=== PATIENT | female | born 1945 | race Caucasian/White ===

== ENCOUNTER 2016-09-03 23:36 | Emergency (ER) | payer MEDICARE ==
[~2016-09-03] VITALS: Ht 160 cm; Wt 92.7 kg
[2016-09-03 23:40] VITALS: BP 135/93; PULSE 86; RESP 16; O2SAT 96
--- NOTE | 2016-09-03 23:52 | ED.REPORT ---
HPI-Back Pain 40 and Over Date of Service Sep 03, 2016 ED Provider: Joesph Steele DO Patient is a 71 year old female with a history of kidney stones who presents to the ED complaining of left flank pain onset yesterday. The patient reports pain with deep inhalation and that it is exacerbated by movement. She denies rash or abdominal pain. Patient states that she tried taking Hydrocodone earlier with no relief. Nursing Notes Stated Complaint: BACK PAIN Chief Complaint: Back Pain or Injury Nursing Notes Reviewed: Yes Allergies: Coded Allergies: aspirin (Verified Allergy, Mild, RASH, 09/03/16) General Time Seen by MD: 23:52 Chief Complaint Flank pain left Hx Obtained From: Patient Arrived By: Walk-in Sudden in Onset?: Yes Onset Occurred: Yesterday Symptom Duration: Since onset Location: : Flank left Quality: Painful Severity: Current: Moderate Exacerbated by: Breathing, Walking Recent Healthcare: No recent doctor visit, No recent hospitalization Past Medical History Past Medical History kidney stones Ambulatory Status Independent Review of Systems Constitutional: Denies: Chills, Fever Respiratory: Denies: Non-productive cough, Shortness of breath GI: Denies: Abdominal pain Female: Reports: Flank pain Complete sys rev & neg: except as marked. Skin: Denies Rash Physical Exam Initial Vital Signs Vital Signs (First) Date Time Temp Pulse Resp B/P Pulse Ox O2 Delivery O2 Flow Rate FiO2 09/03/16 23:40 36.1 86 16 135/93 96 Room Air Initial VS: Reviewed General/Constitutional: Awake, Alert Moderate distress due to pain Respiratory / Chest: Atraumatic, Breath sounds NL, Breath sounds = bilat, No respiratory distress Cardiovascular: Heart rate NL, Regular rhythm, Heart sounds NL Abdomen: Atraumatic, Soft, Non-tender Back: Atraumatic left CVA tenderness Neurologic: Oriented X3, Speech NL, No motor deficits, No sensory deficits Neck: Atraumatic, Supple, Full range of motion Lower Extremity / Pelvis / MS: Atraumatic, Full range of motion Skin: Atraumatic, Color NL, No rash, Warm, Dry Head / Eyes: Atraumatic, Normocephalic, PERRL, EOMI Upper Extremity / MS: Atraumatic, Full range of motion Psychiatric: Affect NL, Mood NL Interpretation & Diagnostics Lab Results Interpretation Result Diagram: 09/04/16 0050 09/04/16 0050 Test 09/04/16 00:05 09/04/16 00:50 09/04/16 01:54 Urine Color Yellow (YELLOW) Urine Appearance Clear (CLEAR,HAZY) Urine pH 6.0 (5.0-8.0) Urine Specific [place] 1.021 (1.003-1.035) Urine Protein Negativemg/dL (NEG,TRACE) Urine Glucose (UA) Negativemg/dL (NEGATIVE) Urine Ketones Negativemg/dL (NEGATIVE) Urine Occult Blood Negative (NEGATIVE) Urine Nitrite Negative (NEGATIVE) Urine Bilirubin Negative (NEGATIVE) Urine Urobilinogen Normalmg/dL (NORMAL) Urine Leukocyte Esterase Trace (NEGATIVE) Urine RBC 0-2/hpf (0-2) Urine WBC 0-5/hpf (0-5) Urine Epithelial Cells Many/hpf (NONE-MOD) Urine Crystals None seen (NONE SEEN) Urine Bacteria Few/hpf (NONE-FEW) Urine Hyaline Casts None/lpf (NONE) Urine Granular Casts None seen (NONE SEEN) Urine Waxy Casts None seen (NONE SEEN) Urine Red Blood Cell Casts None seen (NONE SEEN) Urine White Blood Cell Casts None seen (NONE SEEN) Urine Mucus None seen (None Seen) Urine Trichomonas None seen (NONE SEEN) Urine Yeast None (NONE SEEN) Urinalysis Comment Urine Culture Reflexed Indicated White Blood Count 12.9th/mm3 (3.8-10.1) Red Blood Count 4.69mil/mm3 (3.90-5.20) Hemoglobin 14.4g/dL (12.0-15.6) Hematocrit 43.5% (35.0-46.0) Mean Corpuscular Volume 92.8fL (81-100) Mean Corpuscular Hemoglobin 30.7pg (27.0-35.0) Mean Corpuscular Hemoglobin Concent 33.1% (32.0-37.0) Red Cell Distribution Width 13.3% (12.3-15.4) Platelet Count 304bil/L (150-400) Neutrophils (%) (Auto) 62.7% (40-74) Lymphocytes (%) (Auto) 22.1% (14-46) Monocytes (%) (Auto) 6.0% (4-12) Eosinophils (%) (Auto) 8.2% (0-5) Basophils (%) (Auto) 0.5% (0-3) D-Dimer 0.52mg/L FEU (<0.50) Sodium Level 143mEq/L (134-144) Potassium Level 4.2mEq/L (3.5-5.2) Chloride Level 103mEq/L (97-108) Carbon Dioxide Level 24mmol/L (18-29) Blood Urea Nitrogen 24mg/dL (8-27) Creatinine 0.81mg/dL (0.57-1.00) Estimat Glomerular Filtration Rate 100mL/min (>59) Glucose Level 124mg/dL (60-99) Calcium Level 9.6mg/dL (8.5-10.1) Total Bilirubin 0.2mg/dL (0.0-1.2) Aspartate Amino Transf (AST/SGOT) 25U/L (0-50) Alanine Aminotransferase (ALT/SGPT) 26U/L (0-32) Alkaline Phosphatase 97U/L (25-165) Total Protein 7.1g/dL (6.4-8.4) Albumin 4.3g/dL (3.4-5.0) Troponin T < 0.010ug/L (0.0-0.011) CT Abd / Pelvis Interpretation IMPRESSION: 1. Negative for obstructive uropathy. Left renal parapelvic cysts. 2. Normal appendix. No free air, bowel obstruction, or mesenteric inflammation. Moderate to large colonic fecal debris, query constipation. No evidence of fecal impaction. at 0036 Interpretation / Wet Read by: Interpret - Radiologist Re-Eval/Medical Decision Med Decision/Clinical Course This is a very pleasant 71-year-old female who presents with rather severe and intermittent left flank pain. She states his evening her left flank started on her when she was twisting. Since then anytime she twists or takes a deep breath or pushes in the left flank region she has severe pain. She has had prior kidney stones. No history of aortic dissection or pulmonary embolism. On examination she appeared in moderate distress due to pain. She is exquisitely tender left CVA left flank. She also had significant pain with deep breathing. She was unable to move from the chair to the bed without significant pain. Structural uropathy was ruled out with a CT KUB. She had an elevated d-dimer rather significant pleuritic pain so pulmonary emboli was a consideration. This certainly could have been the left lower lobe of her lung. Pulmonary emboli was ruled out. Troponin was normal. MD seems highly unlikely. She is having no chest pain and she has full her reproducible left flank pain. She still had some pain and then developed some nausea after receiving some pain medication. I recommended that we admit her to the hospital overnight for observation and symptomatic control. She declines. She states that she is wants have some pain and nausea medicine for home. Evidently she has to catch a long flight to [facility]. Family members and she does not want this to be injured at all. Considering that MD, dissection and pulmonary emboli highly unlikely think is reasonable that she goes home tonight however she needs understand that the cause of her pain is uncertain and may yet be life- threatening. She agrees to return if she has any problems or any worsening symptoms. She cannot drive tonight. Routine opiate warnings were given. Re-Evaluation/Progress #1: Time of Eval: 00:47 Re-Evaluation/Progress Note: Discussed CT results. Patient reports that the pain is exacerbated the most when she takes a deep breath. Re-Evaluation/Progress #2: Time of Eval: 01:42 Re-Evaluation/Progress Note: Discussed D-Dimer results and plan for CT angio. Re-Evaluation/Progress #3: Time of Eval: 02:22 Re-Evaluation/Progress Note: Patient reports that she is now nausea and feels worse. She is retching Re-Evaluation/Progress #4: Time of Eval: 02:32 Re-Evaluation/Progress Note: Recommended admitting and patient stated that she would just like to go home because she has a flight to catch later. Discussed discharge plan and recommended close follow up with her primary care physician or to return to the ED. Patient understands and agrees to the plan. All questions were addressed. Counseled Regarding: Diagnosis, Lab results, Need for follow-up, When/why to return to ED Discharge & Departure Impression: Primary Impression: Flank pain Additional Impressions: Vomiting Vomiting type: unspecified Vomiting Intractability: unspecified Nausea presence: with nausea Qualified Code: R11.2 - Nausea with vomiting, unspecified Leukocytosis Leukocytosis type: unspecified Qualified Code: D72.829 - Elevated white blood cell count, unspecified Disposition: Home Discharge Condition All VS Reviewed: Yes Condition: Stable Patient Instructions: Flank Pain (ED) Additional Instructions: We are uncertain the cause of your pain. Hospital admittance was recommended. You can come back to the emergency department if you change your mind about this. You can take 1 Zofran every 6-8 for nausea. Take 1-2 [place] every 6 hours for pain. Do not drink alcohol or drive while taking the pain medication. Do not combine with Acetaminophen. Do not drive tonight. Take Miralax 2x while taking the [place] to help with constipation. Close follow up with your primary care physician is strongly recommended Return to the emergency department if you develop any new or concerning symptoms. Call Tuesday to set up a follow up appointment. Referrals: [facility] [place] Att[facility] Portions of this note were transcribed by Tami Hutchinson. I, Dr. Steele personally performed the history, physical exam and medical decision-making; I reviewed and confirmed the accuracy of the information in the transcribed note. Signed by: Veronica Bess, 09/04/16 and 0245 Joesph Steele DO Sep 03, 2016 23:52 Yamileth Hutchinson Sep 03, 2016 23:58
[2016-09-04] MEDS ORDERED: HYDROmorphone 0.5 mg/0.5 mL iSecure Syringe IVPUSH PRN (00:05)
[2016-09-04] MEDS ORDERED: 0.9% Sodium Chloride 1,000 ML IV ONE ×2 (00:05→02:25)
[2016-09-04] MEDS ORDERED: Ketorolac 15 mg/mL Inj IVPUSH ONE (00:05)
[2016-09-04] MEDS ORDERED: Sodium Chloride LOK Flush 10 mL Syringe IVFLUSH SCH (00:30)
[2016-09-04 00:31] LABS: COLOR,URINE YELLOW (YELLOW)
[2016-09-04 00:32] LABS: APPEARANCE,URINE CLEAR (CLEAR,HAZY); OCCULT BLOOD,URINE NEGATIVE (NEGATIVE); UROBILINOGEN,URINE NORMAL (NORMAL)
[2016-09-04 00:54] LABS: BASOPHILS % (AUTO) 0.5 % (0-3); EOSINOPHILS % (AUTO) 8.2 % (0-5); Mean Corpuscular Hemoglobin 30.7 pg (27.0-35.0); Mean Corpuscular Volume 92.8 fL (81-100); NEUTROPHILS % (AUTO) 62.7 % (40-74); Platelet Count 304 bil/L (150-400)
[2016-09-04] MEDS: Ondansetron 2 mg/mL 2 mL Inj IVPUSH PRN ×2 (00:55→02:42)
[2016-09-04] MEDS ORDERED: _HYDROcodone/APAP 5-325 mg Tablet PO PRN (01:50)
[2016-09-04 02:27] VITALS: BP 149/84; PULSE 82; RESP 16; O2SAT 96
[2016-09-04] MEDS ORDERED: _Ondansetron ODT 4 mg Tablet PO PRN (02:35)
[2016-09-04 03:31] VITALS: BP 149/84; PULSE 82; RESP 16; O2SAT 96
--- NOTE | 2016-09-04 07:50 | DRSVH ---
PROCEDURE: CT ANGIO CHEST PULMONARY EMBOLISM ([id number]) INDICATIONS: pleuritic posterior thoracic pain, elevated ddimer TECHNIQUE: After the administration of intravenous contrast, 2 mm thick sections acquired from the pulmonary api jenny to the posterior costophrenic angles. 3-dimensional maximum intensity projection (MIP) coronal a nd sagittal reformats were then acquired through the thorax. For radiation dose reduction, the follo wing was used: automated exposure control, adjustment of mA and/or kV according to patient size. COMPARISON: None. FINDINGS: Image quality: Good Pulmonary arteries: Pulmonary arteries are normal in size, and demonstrate no intraluminal filling d efects to suggest central pulmonary embolism. Lungs and pleura: Lungs are clear. 3 cm bleb at the left apex of the lung No pleural effusions or p neumothorax. Central and peripheral airways are patent. Mediastinum: Heart size is normal, without pericardial effusion. No mediastinal or hilar adenopathy . Thoracic aorta is normal in caliber and enhancement. Esophagus is normal in caliber, without hiat al hernia. Bones and chest wall: No suspicious bony lesions. Ribs and thoracic spine appear intact throughout. Thyroid gland is within normal limits. No axillary or supraclavicular adenopathy. Abdomen: Visualized upper abdominal solid organs appear normal in the early arterial phase of enhanc ement. IMPRESSION: No acute disease is seen in the CT of the thorax for PE protocol. Vasculature is normal. No pulmonary embolus is seen. No acute disease is seen in the lungs. Dictated by: Jeff Thakkar M.D. on 09/04/2016 at 7:46 this report corresponds to the findings of the preliminary NSR report. Approved by: Jeff Thakkar M.D. on 09/04/2016 at 7:48
--- NOTE | 2016-09-04 09:16 | DRSVH ---
PROCEDURE: CT KUB ([id number]) INDICATIONS: left flank pain TECHNIQUE: Noncontrast 5 mm thick sections acquired from the diaphragms to the symphysis. 5 mm thick coronal an d sagittal reformats were then performed. For radiation dose reduction, the following was used: aut omated exposure control, adjustment of mA and/or kV according to patient size. COMPARISON: None. FINDINGS: Image quality: Excellent. Lung bases: Lung bases are clear. Heart size is normal. Urinary system: Both kidneys are normal in size. No kidney stones. No hydronephrosis or perinephri c fat stranding. Left renal parapelvic cysts are noted. Both ureters appear non-dilated throughout t heir expected courses. Bladder wall thickness is normal; no calcified bladder stones. Other solid organs: Liver and spleen are normal in size. Gallbladder is within normal limits. Panc reas is normal in contours. No adrenal nodules. Peritoneum and bowel: Unenhanced bowel loops demonstrate normal wall thickness and caliber. No free fluid or air. Normal appendix is identified. Nodes and vessels: No retroperitoneal or mesenteric adenopathy by size criteria. Aorta and inferior vena cava are normal in caliber. Abdominal wall: No ventral hernias. Pelvis: No free pelvic fluid. No inguinal hernias or adenopathy. Uterus has been removed. Bones: No suspicious bony lesions. No vertebral body compression fractures. . IMPRESSION: 1. Cause of left flank pain is not identified. 2. Generous amount of fecal material throughout the colon without obstruction or impaction. No inflam mation in the colon or around the colon is noted either. 3. Kidneys ureters and bladder are normal the parapelvic cyst noted in the left kidney. Dictated by: Jeff Thakkar M.D. on 09/04/2016 at 9:11 this report corresponds to the findings of e preliminary NSR report. Approved by: Jeff Thakkar M.D. on 09/04/2016 at 9:14
== END 2016-09-04 03:25 | disposition home or self-care (01) ==
LOC: SED 23:36
DX: R10.32 Left lower quadrant pain (principal); R11.2 Nausea with vomiting, unspecified; D72.829 Elevated white blood cell count, unspecified; Z90.710 Acquired absence of both cervix and uterus; Z87.442 Personal history of urinary calculi; Z88.6 Allergy status to analgesic agent
CPT/HCPCS: 36415; 71275; 74176; 80053; 81000; 84484; 85025; 85378; 87086; 87088; 96361; 96374; 96375; 96376; 99285; J1170; J1885; J2405; J7030; Q9967